=== PATIENT | female | born 1985 | race Caucasian/White ===

== ENCOUNTER 2022-08-12 08:02 | Day surgery (SDC) | payer BC ==
[2022-08-08 12:05] VITALS: BMI 27.4
[2022-08-11 15:12] LABS: Hemoglobin 13.5 g/dL (12.0-15.5); Mean Corpuscular Hemoglobin 31.3 pg (27.0-33.0); Mean Corpuscular Volume 92.1 fl (81.6-98.3); Mean Platelet Volume 9.4 fl (7.4-10.4); Platelet Count 315 10x3/uL (150-450); RBC Distribution Width 11.4 % (11.5-14.5); Red Blood Cell (RBC) Count 4.31 10x6/uL (3.90-5.03); White Blood Cell (WBC) Count 6.2 10x3/uL (3.5-10.5)
[2022-08-11 15:15] LABS: BHCG - Serum Negative (NEGATIVE); Pregs Control Background? CLEAR/WHITE (CLR/WHITE); Pregs Control Bar Appear? YES (CONTROL BAR)
[2022-08-12] MEDS ORDERED: CeleCOXIB 100 MG CAP ONE (08:19)
[2022-08-12] MEDS ORDERED: Gabapentin 300 MG CAP ONE (08:19)
[2022-08-12] MEDS ORDERED: Famotidine/PF 20 mg/2ml Vial ONE (08:20)
[2022-08-12] MEDS ORDERED: Acetaminophen 500 MG TAB ONE (08:47)
[2022-08-12] MEDS ORDERED: Scopolamine 1.5 mg/72 hour Patch ONE (08:47)
[2022-08-12] MEDS ORDERED: Dexmedetomidine 200 MCG/2 ML VIAL ONE (09:12)
[2022-08-12] MEDS ORDERED: Bupivacaine HCl 0.5%/Epinephrine 1:200,000/PF 30 ml Vial ONE (10:01)
[2022-08-12] MEDS ORDERED: SUGAMMADEX SODIUM 200 MG/2 ML VIAL ONE (10:37)
[2022-08-12] MEDS ORDERED: HYDROmorphone 0.5 MG/0.5 ML SYRINGE ONE (10:40)
[2022-08-12] MEDS ORDERED: Fentanyl 100 MCG/2 ML VIAL ONE (10:45)
[2022-08-12] MEDS ORDERED: Midazolam HCl 2 mg/2 ml Vial ONE (10:45)
[2022-08-12] MEDS ORDERED: CEFAZOLIN 2 GM VIAL ONE (10:54)
[2022-08-12] MEDS ORDERED: Esmolol 100 MG/10 ML VIAL ONE (11:14)
[2022-08-12] MEDS ORDERED: Ondansetron PF 4 MG/2 ML Vial ONE (15:02)
== END 2022-08-12 15:20 | disposition home or self-care (01) ==
LOC: CSHSDC 08:02
PROVIDERS: ATTEND Obstetrics & Gynecology
PROC: 0UT94ZZ Resection of Uterus, Percutaneous Endoscopic Approach (ICD-10-PCS; principal; 2022-08-12)
PROC: 0UT74ZZ Resection of Bilateral Fallopian Tubes, Percutaneous Endoscopic Approach (ICD-10-PCS; principal; 2022-08-12)
DX: N80.00 Endometriosis of the uterus, unspecified (principal); D25.9 Leiomyoma of uterus, unspecified; F90.9 Attention-deficit hyperactivity disorder, unspecified type; I10 Essential (primary) hypertension; F41.9 Anxiety disorder, unspecified; F32.A Depression, unspecified; Z79.899 Other long term (current) drug therapy; Z87.891 Personal history of nicotine dependence; N94.6 Dysmenorrhea, unspecified; Z88.2 Allergy status to sulfonamides; Z88.5 Allergy status to narcotic agent
CPT/HCPCS: 36415; 84703; 85027; 86850; 86900; 86901; 88307; J1170; J2250; J2405; J3010; S0028